=== PATIENT | male | born 1985 | race Caucasian/White ===

== ENCOUNTER 2023-02-21 16:27 | Inpatient (IN) ==
[2023-02-21] MEDS ORDERED: SODIUM CHLORIDE 0.9% 1000ML 1,000 ML IV STA (16:55)
[2023-02-21] MEDS ORDERED: ALBUT/IPRATROP 3MG/0.5MG NEB 3 ML VIAL NEB STA (16:55)
[2023-02-21] MEDS ORDERED: KETOROLAC TROMETHAMINE 15 MG/ML VIAL IV ONE (16:55)
--- NOTE | 2023-02-21 16:55 | Emergency Department Note ---
Impression & Plan Pulmonary emboli, Elevated troponin, Abnormal ECG, Dyspnea ED Provider Note NAME: ALFONSO WILLIAMSON AGE: 37 SEX: M : 1985 ARRIVES VIA: Walk-In INFORMANT: Patient, ED PROVIDER(S): Gerald Boateng MD CHIEF COMPLAINT: Difficulty with breathing MEDICAL DECISION MAKING: Patient presents due to concern for difficulty with breathing was seen at [facility]. The patient has also had some sore throat. IV was established blood was obtained along with an EKG troponin chest x-ray and D-dimer. I did review the patient's EKG and a CT angiography was ordered as the patient does have of T waves anteriorly as well as in lead III. I did review the patient's CT angiography which does show bilateral pulmonary emboli. Heparin drip was ordered. The patient's blood work shows a normal white count H&H and platelet count. The patient's kidney function is unremarkable with normal electrolytes. Slight elevation troponin at 32. The patient's bilirubin 1.5. I did convey the findings to the patient and the family bedside. One of the family members was concerned that this may be related to the COVID-19 vaccine. The patient was vaccinated 2 years ago. I stated that this was exceptionally unlikely and the likely cause was related to the patient's recent prolonged air travel as well as car travel as the patient developed symptoms around the same time that he traveled to [facility] via plane. The patient also did recently travel via car from [place] to [place] which was around 5 hours. D-dimer is greater than 15,000. I did speak with the on-call hospital service Dr. Glass and Franco Hines PA-C, and the patient was admitted by Dr. Glass. Critical Care: I have personally spent 42 minutes of critical care time in direct management of this patient. This includes bedside care, interpretation of diagnostic studies, and testing, discussion with consultants, patient, and family members, and other require inpatient management activities. This 42 minutes is in excess of all separately billable procedures. Prior /Outside records reviewed: None Differential diagnosis: Cardiac ischemia, aortic dissection, pulmonary embolism, pneumothorax, pneumonia, pericarditis, myocarditis, esophageal rupture, GERD, cholecystitis, pancreatitis, musculoskeletal, as well as other pathologies. Diagnostics, as interpreted by me: ECG: Normal sinus rhythm, rate of 83, normal [place] and QRS, normal axis, T wave versions anteriorly laterally and in lead III. No priors for comparison Cardiac monitoring: An order was placed for continuous cardiac monitoring. The monitor shows a rate of 78 with sinus rhythm. Patient was placed on pulse oximetry Medical decision rules: PERC rule Imaging studies: See below I informally reviewed the patient's CT angiography of the chest which shows bilateral PEs. HPI: Patient presents due to concern for increasing difficulty with breathing. The patient states that it was intermittent over the last 2 weeks but seems to be more persistent. The patient did recent return from [place] and does live in [place] and was recently down here to participate in [employer] but did not do so today given his symptoms. The patient feels as though he is "breathing through a straw." No reported history of reactive airway disease or asthma. The patient is a non-smoker. 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 Patient [place] any leg swelling or calf pain. No history of DVT or PE. Patient denies any nausea vomiting or diarrhea. Patient states that he had a negative strep test completed prior to arrival. Patient also did have an EKG and a chest x-ray. He reports that they describe the chest x-ray with some haziness at the bottom and was unsure as to whether or not they could interpret the EKG. PAST MEDICAL HISTORY: See Below PAST SURGICAL HISTORY: See Below SOCIAL HISTORY: See Below HOME MEDICATIONS: See Below ALLERGIES: See Below VITALS: See Below PHYSICAL EXAMINATION: GENERAL: NAD, wearing a mask, non-toxic. EYE EXAM: Normal conjunctiva. PERRL, no anisocoria and EOM's grossly intact w/o pain. Oropharynx: Posterior pharynx is clear with no tonsillar or uvular deviation or swelling NECK: Supple, no nuchal rigidity, no adenopathy, non-tender. No signs of meningismus. FROM of the neck with good chin to chest and neck extension. No stridor. LUNGS: Clear to auscultation. Normal chest wall mechanics. HEART: NSR, no MRG. ABDOMEN: Abdomen soft, non-tender, no masses, no rebound or guarding. BACK: No CVA TTP. SKIN: No rashes and no bruising. UPPER EXTREMITIES: Upper extremities are grossly normal. LOWER EXTREMITIES: Grossly normal, no edema. Negative Homans' sign bilaterally. NEURO EXAM: A&O x3, cranial nerves II-XII grossly intact, normal speech, moves all 4 extremities. Past Med/Surg History Medical History No pertinent past medical history Surgical History No pertinent past surgical history Social History Smoking Status: Never smoker Second Hand Exposure: No; Do You Dip or Chew Tobacco: No; Tobacco Cessation Education Requested by Patient: No Hx Alcohol Use: No Hx Substance Use: No Preferred Language: Central African Communication Ability: Effective Generation Mechanic Helper Required: No Beliefs That Will Affect Care: None Current Living Situation: Spouse Other Information That Helps Us Care for You: No Feels Safe at Home: Yes Safety Concerns: Feels Safe At This Time Assistive Devices: None Allergies Allergies Allergy/AdvReac Type Severity Reaction Status Date / Time No Known Allergies Allergy Unverified 02/21/23 16:43 Home Meds Home Medications Medication Instructions Recorded Confirmed No Known Home Medications 02/21/23 02/21/23 Results & Data (ED) Vital Signs Vital Signs - 24 hr 02/21/23 16:31 02/21/23 16:44 02/21/23 16:40 Temperature 36.6 C Temperature Source Temporal Artery Scan Pulse Rate 89 82 82 Pulse Rate [Left Finger] Pulse Rhythm Regular Regular Pulse Strength Normal Respiratory Rate 20 18 Respiratory Effort / Characteristics Non-Labored Spontaneous Respiratory Depth Normal Respiratory Pattern Regular Blood Pressure 130/90 Blood Pressure [Left Arm] Blood Pressure Mean 103 Blood Pressure Mean [Left Arm] Blood Pressure Position Sitting Pulse Oximetry 96 95 Oxygen Delivery Method Room Air Room Air Sepsis Recent Fever Within 48 Hours No Sepsis New/Unexplained Change in Mental Status No Sepsis Action Taken by Nursing No Action Required 02/21/23 16:40 02/21/23 17:22 Temperature Temperature Source Pulse Rate Pulse Rate [Left Finger] 80 Pulse Rhythm Pulse Strength Respiratory Rate 24 Respiratory Effort / Characteristics Respiratory Depth Respiratory Pattern Blood Pressure Blood Pressure [Left Arm] 118/85 Blood Pressure Mean Blood Pressure Mean [Left Arm] 96 Blood Pressure Position Pulse Oximetry 94 100 Oxygen Delivery Method Room Air Sepsis Recent Fever Within 48 Hours Sepsis New/Unexplained Change in Mental Status Sepsis Action Taken by Assisted Medications Current Medication List: was personally reviewed by me Laboratory Data Attestation: I reviewed the patient's lab results. 02/21/23 16:46 02/21/23 16:46 Lab Results 02/21/23 02/21/23 02/21/23 Range/Units 16:46 16:46 16:46 WBC 7.05 (4.8-10.8) K/ul RBC 5.06 (4.70-6.10) M/uL Hgb 15.3 (14.0-18.0) g/dl Hct 43.9 (42.0-52.0) % MCV 86.8 (80.0-100.0) fL MCH 30.2 (25.0-34.0) pg MCHC 34.9 (32.0-36.0) g/dL RDW Std Deviation 38.7 (36.4-46.3) fL RDW Coeff of Malorie 12.2 (11.5-14.5) % Plt Count 219 (130-400) K/uL MPV 10.6 (9.4-12.4) fL Immature Gran % (Auto) 0.3 % Neut % (Auto) 60.4 % Lymph % (Auto) 30.6 % Maury % (Auto) 8.1 % Eos % (Auto) 0.0 % Baso % (Auto) 0.6 % Neut # (Auto) 4.26 (1.40-6.50) K/uL Lymph # (Auto) 2.16 (1.2-3.4) K/uL Maury # (Auto) 0.57 (0.11-0.59) K/uL Eos # (Auto) 0.00 (0-0.50) K/uL Baso # (Auto) 0.04 (0-0.2) K/uL Immature Gran # (Auto) 0.02 (0.01-0.20) K/uL PT (9.0-12.0) Seconds INR (0.9-1.1) APTT (21.0-31.0) Seconds PTT Ratio D-Dimer 47733 H* (0-500) ug/L FEU Sodium 139 (136-145) mmol/L Potassium 3.9 (3.5-5.1) mmol/L Chloride 105 (98-107) mmol/L Carbon Dioxide 27 (21-32) mmol/L Anion Gap 7 (3-11) BUN 10 (6-23) mg/dl Creatinine 1.03 (0.6-1.4) mg/dl Est Cr Clr Drug Dosing 129.1 ml/min Est GFR ( Amer) 105.6 ml/min Est GFR (Non-Af Amer) 91.1 ml/min BUN/Creatinine Ratio 9.7 L (10-20) Glucose 95 (70-99(Fasting)) mg/dl Calcium 9.3 (8.6-10.3) mg/dl Total Bilirubin 1.5 H (0.2-1.0) mg/dl AST 39 (13-39) U/L ALT 22 (7-52) U/L Alkaline Phosphatase 94 (34-104) U/L Troponin I High Sens 32.0 H (0-20) pg/ml Total Protein 8.2 (6.0-8.3) gm/dl Albumin 4.5 (3.4-5.0) gm/dl Globulin 3.7 (2.5-4.0) gm/dl Albumin/Globulin Ratio 1.2 (0.9-2) Lipase 42 (11-82) U/L SARS-CoV-2 (PCR) (Negative) Influenza Type A (PCR) (Neg) Influenza Type B (PCR) (Neg) RSV (RT-PCR) (Neg) 02/21/23 02/21/23 Range/Units 16:46 17:08 WBC (4.8-10.8) K/ul RBC (4.70-6.10) M/uL Hgb (14.0-18.0) g/dl Hct (42.0-52.0) % MCV (80.0-100.0) fL MCH (25.0-34.0) pg MCHC (32.0-36.0) g/dL RDW Std Deviation (36.4-46.3) fL RDW Coeff of Malorie (11.5-14.5) % Plt Count (130-400) K/uL MPV (9.4-12.4) fL Immature Gran % (Auto) % Neut % (Auto) % Lymph % (Auto) % Maury % (Auto) % Eos % (Auto) % Baso % (Auto) % Neut # (Auto) (1.40-6.50) K/uL Lymph # (Auto) (1.2-3.4) K/uL Maury # (Auto) (0.11-0.59) K/uL Eos # (Auto) (0-0.50) K/uL Baso # (Auto) (0-0.2) K/uL Immature Gran # (Auto) (0.01-0.20) K/uL PT 10.8 (9.0-12.0) Seconds INR 1.0 (0.9-1.1) APTT 28.3 (21.0-31.0) Seconds PTT Ratio 1.0 D-Dimer (0-500) ug/L FEU Sodium (136-145) mmol/L Potassium (3.5-5.1) mmol/L Chloride (98-107) mmol/L Carbon Dioxide (21-32) mmol/L Anion Gap (3-11) BUN (6-23) mg/dl Creatinine (0.6-1.4) mg/dl Est Cr Clr Drug Dosing ml/min Est GFR ( Amer) ml/min Est GFR (Non-Af Amer) ml/min BUN/Creatinine Ratio (10-20) Glucose (70-99(Fasting)) mg/dl Calcium (8.6-10.3) mg/dl Total Bilirubin (0.2-1.0) mg/dl AST (13-39) U/L ALT (7-52) U/L Alkaline Phosphatase (34-104) U/L Troponin I High Sens (0-20) pg/ml Total Protein (6.0-8.3) gm/dl Albumin (3.4-5.0) gm/dl Globulin (2.5-4.0) gm/dl Albumin/Globulin Ratio (0.9-2) Lipase (11-82) U/L SARS-CoV-2 (PCR) NEGATIVE (Negative) Influenza Type A (PCR) Negative (Neg) Influenza Type B (PCR) Negative (Neg) RSV (RT-PCR) Negative (Neg) Administered Medications Heparin Sodium/Dextrose (Heparin Sodium/Dextrose) 25,000 units in 500 mls @ 34 mls/hr IV .[id number] [facility]; Protocol Stop: 03/23/23 18:29 Last Admin: 02/21/23 18:44 Dose: 1,700 units/hr, 34 mls/hr Documented By: SUZI Co-signed By: LISSETTE Discontinued Medications Albuterol (Albut/Ipratrop 3mg/0.5mg Neb 3 Ml Vial) 3 ml NEB NOW STA; Protocol Stop: 02/21/23 16:56 Last Admin: 02/21/23 17:14 Dose: 3 ml Documented By: SUZI Heparin Sodium (Porcine) (Heparin Sod (Porcine) 1000 Unit/Ml) 8,000 units IV NOW ONE Stop: 02/21/23 18:19 Last Admin: 02/21/23 18:47 Dose: 8,000 units Documented By: SUZI Co-signed By: LISSETTE Sodium Chloride (Nss 1000ml) 1,000 mls @ 999 mls/hr IV .Q1H1M STA Stop: 02/21/23 17:55 Last Admin: 02/21/23 17:04 Dose: 999 mls/hr Documented By: SUZI Ioversol (Optiray 320 125ml) 119 ml IV ONCE ONE Stop: 02/21/23 17:46 Last Admin: 02/21/23 17:45 Dose: 119 ml Documented By: MICHEL Ketorolac Tromethamine (Ketorolac Tromethamine 15 Mg/Ml Vial) 10 mg IV NOW ONE Stop: 02/21/23 16:56 Last Admin: 02/21/23 17:05 Dose: 10 mg Documented By: SUZI Methylprednisolone (Methylprednisolone 40 Mg/Ml Vial) 40 mg IV NOW STA Stop: 02/21/23 16:56 Last Admin: 02/21/23 17:05 Dose: 40 mg Documented By: SUZI Imaging Data Radiologist's Impression: Chest X-Ray 02/21/23 16:55 SINGLE VIEW CHEST CLINICAL HISTORY: Atypical chest pain. FINDINGS: An AP, portable, upright chest radiograph is obtained. No prior studies are available for comparison at the time of dictation. The cardiomediastinal silhouette is unremarkable. There is mild elevation of right hemidiaphragm with dependent atelectasis. The lungs and pleural spaces are otherwise clear. No pneumothorax is seen. The bony thorax is grossly intact. IMPRESSION: No acute cardiopulmonary abnormality. ACT 112: Negative or not required by law. Electronically signed by: Boogie Castanon M.D. 02/21/2023 5:18 PM Chest CTA 02/21/23 17:26 CT ANGIOGRAM OF THE CHEST CLINICAL HISTORY: Cough and dyspnea. COMPARISON STUDY: Chest x-ray dated 02/21/2023. TECHNIQUE: Following the IV administration of 119 cc of Optiray 320, CT a ngiogram of the chest was performed from the upper abdomen to the thoracic inlet utilizing the pulmonary embolus protocol. Images are reviewed in the axial, sagittal, and coronal planes. 3-D MIPS images are created and assessed. IV contrast was administered without complication. A dose lowering technique was utilized adhering to the principles of ALARA. CT DOSE: 900.90 mGy.cm FINDINGS: Thyroid: Imaged portions of the thyroid gland are normal in size and attenuation. Thoracic aorta: The thoracic aorta is normal in caliber and demonstrates standard 3-vessel arch anatomy. No dissection is seen. Pulmonary vasculature: The pulmonary trunk is dilated measuring 3.4 cm in diameter. There is extensive bilateral pulmonary embolus. There is thrombus within the distal right main pulmonary artery. This extends into the right upper, middle, and lower lobe pulmonary arteries into segmental and subsegmental branches. There is thrombus within the left upper and left lower lobe pulmonary arteries extending into segmental and subsegmental branches. There is segmental and subsegmental pulmonary embolus within the lingula. Heart: The heart is normal in size and without pericardial effusion. There is flattening of the interventricular septum. Lungs and pleural spaces: Evaluation of the lung parenchyma is modestly degraded by motion artifact. There are minimal patchy opacities in the paramediastinal left upper lobe seen on image #154. Minimal subpleural opacities at the right apex are seen on image #185. No pleural effusion is seen. Dependent atelectasis is seen at the lung bases. Mediastinum: There is no mediastinal lymphadenopathy. Dinorah: Clear. Axillae: There is no axillary lymphadenopathy. Upper abdomen: Partially visualized upper abdominal viscera is within normal limits. Skeletal structures: No lytic or blastic bony lesions are seen. IMPRESSION: 1. Extensive bilateral pulmonary embolus as above. 2. Findings suggest right heart strain. 3. Subpleural opacities in the upper lobes likely represents tiny pulmonary infarcts. 4. No pleural effusion is seen. 5. Additional findings as above. ACT 112: Negative or not required by law. Electronically signed by: Boogie Castanon M.D. 02/21/2023 5:59 PM Discharge Plan Visit Data Chief Complaint: Shortness of Breath/Dyspnea Stated Complaint: DIFF BREATHING, SORE THROAT - REF BY [employer] ED Provider: Gerald Boateng Discharge Problem: Pulmonary emboli, Elevated troponin, Abnormal ECG, Dyspnea Patient Disposition: Admitted As Inpatient Discharge Instructions Interventions: ED Discharge Assessment Last Done: 02/21/23 19:11
[2023-02-21 17:12] LABS: Basophils # (auto) 0.04 K/uL (0-0.2); Basophils % (auto) 0.6 %; Hematocrit (blood only) 43.9 % (42.0-52.0); Hemoglobin 15.3 g/dl (14.0-18.0); Immature Granulocytes # (auto) 0.02 K/uL (0.01-0.20); Immature Granulocytes % (auto) 0.3 %; Lymphocytes # (auto) 2.16 K/uL (1.2-3.4); Lymphocytes % (auto) 30.6 %; Mean Corpuscular Hemoglobin 30.2 pg (25.0-34.0); Mean Corpuscular Hgb Conc 34.9 g/dL (32.0-36.0); Mean Corpuscular Volume 86.8 fL (80.0-100.0); Mean Platelet Volume 10.6 fL (9.4-12.4); Monocytes # (auto) 0.57 K/uL (0.11-0.59); Monocytes % (auto) 8.1 %; Neutrophils # (auto) 4.26 K/uL (1.40-6.50); Neutrophils % (auto) 60.4 %; Platelet Count 219 K/uL (130-400); RDW Coefficient of Variation 12.2 % (11.5-14.5); RDW Standard Deviation 38.7 fL (36.4-46.3); Red Blood Count 5.06 M/uL (4.70-6.10); White Blood Count 7.05 K/ul (4.8-10.8)
[2023-02-21 17:19] LABS: Albumin Globulin Ratio 1.2 (0.9-2); Albumin Level 4.5 gm/dl (3.4-5.0); BUN Creatinine Ratio 9.7 (10-20); Bilirubin,Total 1.5 mg/dl (0.2-1.0); Calcium 9.3 mg/dl (8.6-10.3); Creatinine Clr Calc Pharmacy 129.1 ml/min; Est GFR (African American) 105.6 ml/min; Est GFR (Non-African American) 91.1 ml/min; Globulin 3.7 gm/dl (2.5-4.0); Potassium 3.9 mmol/L (3.5-5.1); Total Protein 8.2 gm/dl (6.0-8.3)
--- NOTE | 2023-02-21 17:20 | XRay Report ---
SINGLE VIEW CHEST CLINICAL HISTORY: Atypical chest pain. FINDINGS: An AP, portable, upright chest radiograph is obtained. No prior studies are available for c omparison at the time of dictation. The cardiomediastinal silhouette is unremarkable. There is mild e levation of right hemidiaphragm with dependent atelectasis. The lungs and pleural spaces are otherwis e clear. No pneumothorax is seen. The bony thorax is grossly intact. IMPRESSION: No acute cardiopulmonary abnormality. ACT 112: Negative or not required by law. Electronically signed by: Boogie Castanon M.D. 02/21/2023 5:18 PM
[2023-02-21] MEDS ORDERED: OPTIRAY 320 125ml IV ONE (17:45)
[2023-02-21 17:54] LABS: Influenza A virus by PCR Negative (Neg); Influenza B virus by PCR Negative (Neg); RSV by PCR Negative (Neg); SARS CoV2 RNA(COVID-19) Ceph NEGATIVE (Negative)
--- NOTE | 2023-02-21 18:01 | CT Scan Report ---
CT ANGIOGRAM OF THE CHEST CLINICAL HISTORY: Cough and dyspnea. COMPARISON STUDY: Chest x-ray dated 02/21/2023. TECHNIQUE: Following the IV administration of 119 cc of Optiray 320, CT angiogram of the chest was pe rformed from the upper abdomen to the thoracic inlet utilizing the pulmonary embolus protocol. Images are reviewed in the axial, sagittal, and coronal planes. 3-D MIPS images are created and assessed. I V contrast was administered without complication. A dose lowering technique was utilized adhering to the principles of ALARA. CT DOSE: 900.90 mGy.cm FINDINGS: Thyroid: Imaged portions of the thyroid gland are normal in size and attenuation. Thoracic aorta: The thoracic aorta is normal in caliber and demonstrates standard 3-vessel arch anato my. No dissection is seen. Pulmonary vasculature: The pulmonary trunk is dilated measuring 3.4 cm in diameter. There is extensiv e bilateral pulmonary embolus. There is thrombus within the distal right main pulmonary artery. This extends into the right upper, middle, and lower lobe pulmonary arteries into segmental and subsegment al branches. There is thrombus within the left upper and left lower lobe pulmonary arteries extending into segmental and subsegmental branches. There is segmental and subsegmental pulmonary embolus with in the lingula. Heart: The heart is normal in size and without pericardial effusion. There is flattening of the inter ventricular septum. Lungs and pleural spaces: Evaluation of the lung parenchyma is modestly degraded by motion artifact. There are minimal patchy opacities in the paramediastinal left upper lobe seen on image #154. Minimal subpleural opacities at the right apex are seen on image #185. No pleural effusion is seen. Dependen t atelectasis is seen at the lung bases. Mediastinum: There is no mediastinal lymphadenopathy. Dinorah: Clear. Axillae: There is no axillary lymphadenopathy. Upper abdomen: Partially visualized upper abdominal viscera is within normal limits. Skeletal structures: No lytic or blastic bony lesions are seen. IMPRESSION: 1. Extensive bilateral pulmonary embolus as above. 2. Findings suggest right heart strain. 3. Subpleural opacities in the upper lobes likely represents tiny pulmonary infarcts. 4. No pleural effusion is seen. 5. Additional findings as above. ACT 112: Negative or not required by law. Electronically signed by: Boogie Castanon M.D. 02/21/2023 5:59 PM
[2023-02-21] MEDS ORDERED: Heparin IV Adult Wt-Based Standard WITH Bolus Protocol IV STA (18:02)
[2023-02-21 18:17] LABS: D Dimer 15680 ug/L FEU (0-500)
[2023-02-21] MEDS ORDERED: HEPARIN SOD (PORCINE) 1000 UNIT/ML IV ONE ×2 (18:18)
--- NOTE | 2023-02-21 18:19 | History & Physical Report ---
Date of Service February 21, 2023 Assessment & Plan (1) Pulmonary emboli: Plan: -Admit to the PCU on tele -Currently hemodynamically stable and stable on RA -Patient had been experiencing two weeks of sore throat, headache, and increased SOB with exertion -Found to have extensive BL PE's BL, report mentions signs of right heart strain but he has been hemodynamically stable and stable on RA since arrival -At this time, it appears that these PE's are provoked as he has had multiple long trips recently -Continue heparin drip overnight, can convert to PO anticoagulant prior to discharge -Will obtain BL venous dopplers of the LE's and TTE for further evaluation -Would continue to stress the importance of avoid intense activity/working out on discharge until he follows up with his home PCP as the patient and his father were very interested when he could continue working out -Heparin drip for DVT PPX -Regular diet -AM CBC, CMP, APTT/PT INR (2) Elevated troponin: Plan: -Initial high sen trop elevated at 32 -Patient is asymptomatic at rest -Noted to have t-wave inversions in the anterior leads on ECG -Likely due to his acute, extensive, BL PE's -Will repeat another high sen trop STAT -Continue to monitor on tele -Follow TTE when completed tomorrow Plan The patient was discussed with Dr. Glass at the time of the admission History of Present Illness Chief Complaint: SOB Primary Care Provider: NO PCP Diego is a 37 year old male with no significant PMH who presents to the [facility] ED on 02/21 from Urgent Care due to complaints of SOB with new T-wave inversions noted on ECG. In the ED he was found to be stable. Labs were significant for a total bili of 1.5 and initial high sen trop of 32. Chest xray was negative for acute findings. CTA of the chest was read as "1. Extensive bilateral pulmonary embolus as above. 2. Findings suggest right heart strain. 3. Subpleural opacities in the upper lobes likely represents tiny pulmonary infarcts.". Prior to admission the patient was given 40 mg IV methylprednisolone, 10 mg IV toradol, 1L NSS, a DuoNeb treatment, and started on a heparin drip. At the time of the exam the patient was sitting in bed in no acute distress with his and father sitting bedside. The patient states that he has been experiencing sore throat and increased SOB with exercise. He explains that he and his family came into town for the [employer] competition and drive in from [place]. While warming up today he states that he did not feel "right" and decided to not participate in the competition and go to an urgent care instead. He tested negative for covid and strep but had t-wave inversions in the anterior leads, so they recommend ED evaluation. He denies a previous hx of blood clots, he does not use alcohol or tobacco products. he denies recent injury to his LE's. Of note, he did fly to and from [place] approximately 2 weeks ago, when his symptoms started. he currently denies fever, chills, chest pain, cough, hemoptysis, SOB at rest, abd pain, nausea, vomiting, diarrhea, dysuria, hematuria, melena, LE swelling, and recent trauma. Please refer to Dr. Glass's attestation for any changes to the treatment plan Allergies Allergy/AdvReac Type Severity Reaction Status Date / Time No Known Allergies Allergy Unverified 02/21/23 16:43 Home Medications Medication Instructions Recorded Confirmed Type No Known Home Medications 02/21/23 02/21/23 History Past Med/Surg History Medical History No pertinent past medical history Surgical History No pertinent past surgical history Social History Smoking Status: Never smoker Second Hand Exposure: No; Do You Dip or Chew Tobacco: No; Tobacco Cessation Education Requested by Patient: No Hx Alcohol Use: No Hx Substance Use: No Preferred Language: Uzbek Communication Ability: Effective Caustic Mixer Required: No Beliefs That Will Affect Care: None Current Living Situation: Spouse Other Information That Helps Us Care for You: No Feels Safe at Home: Yes Safety Concerns: Feels Safe At This Time Assistive Devices: None Physical Exam Physical Exam: Physical Exam: General: In no acute distress, stated age, well-nourished, good hygiene HEENT: Normocephalic, atraumatic, no scleral icterus, pupils around round, symmetrical, and reactive to light, moist mucus membranes, trachea midline, no thyromegaly Chest/Pulm: No respiratory distress, symmetrical chest expansion, clear breath sounds throughout Cardiac: RRR, no murmurs noted Abdomen: Negative for ascites and bruising, normoactive bowel sounds, soft, non-tender to palpation throughout Musculoskeletal: Symmetrical and without signs of acute trauma, upper and lower extremities with full ROM, no atrophy, spasticity, or flaccidity Extremities: Radial, dorsalis pedis, and posterior tibial pulses are intact and symmetrical, no edema noted in the BL LE's Skin: Warm, dry, no rashes , lesions, or scars noted Neuro: Alert and oriented to person, place, month, year, and president, no tremors noted Psych: No acute distress, calm and cooperative during the exam Results & Data Results & Data Vital Signs (Past 12 Hours) Vital Signs Temp Pulse Pulse Resp BP BP Pulse Ox 02/21/23 17:22 80 24 118/85 100 02/21/23 16:40 94 02/21/23 16:40 82 18 95 02/21/23 16:44 82 02/21/23 16:31 36.6 C 89 20 130/90 96 O2 Del Method 02/21/23 17:22 02/21/23 16:40 Room Air 02/21/23 16:40 Room Air 02/21/23 16:44 02/21/23 16:31 Room Air Laboratory Results Abnormal lab results 02/21/23 02/21/23 Range/Units 16:46 16:46 D-Dimer 30700 H* (0-500) ug/L FEU BUN/Creatinine Ratio 9.7 L (10-20) Total Bilirubin 1.5 H (0.2-1.0) mg/dl Troponin I High Sens 32.0 H (0-20) pg/ml Diagnostic Findings Chest X-Ray 02/21/23 16:55 SINGLE VIEW CHEST CLINICAL HISTORY: Atypical chest pain. FINDINGS: An AP, portable, upright chest radiograph is obtained. No prior studies are available for comparison at the time of dictation. The cardiomediastinal silhouette is unremarkable. There is mild elevation of right hemidiaphragm with dependent atelectasis. The lungs and pleural spaces are otherwise clear. No pneumothorax is seen. The bony thorax is grossly intact. IMPRESSION: No acute cardiopulmonary abnormality. ACT 112: Negative or not required by law. Electronically signed by: Boogie Castanon M.D. 02/21/2023 5:18 PM Chest CTA 02/21/23 17:26 CT ANGIOGRAM OF THE CHEST CLINICAL HISTORY: Cough and dyspnea. COMPARISON STUDY: Chest x-ray dated 02/21/2023. TECHNIQUE: Following the IV administration of 119 cc of Optiray 320, CT angiogram of the chest was performed from the upper abdomen to the thoracic inlet utilizing the pulmonary embolus protocol. Images are reviewed in the axial, sagittal, and coronal planes. 3-D MIPS images are created and assessed. IV contrast was administered without complication. A dose lowering technique was utilized adhering to the principles of ALARA. CT DOSE: 900.90 mGy.cm FINDINGS: Thyroid: Imaged portions of the thyroid gland are normal in size and attenuation. Thoracic aorta: The thoracic aorta is normal in caliber and demonstrates standard 3-vessel arch anatomy. No dissection is seen. Pulmonary vasculature: The pulmonary trunk is dilated measuring 3.4 cm in diameter. There is extensive bilateral pulmonary embolus. There is thrombus within the distal right main pulmonary artery. This extends into the right upper, middle, and lower lobe pulmonary arteries into segmental and subsegmental branches. There is thrombus within the left upper and left lower lobe pulmonary arteries extending into segmental and subsegmental branches. There is segmental and subsegmental pulmonary embolus within the lingula. Heart: The heart is normal in size and without pericardial effusion. There is flattening of the interventricular septum. Lungs and pleural spaces: Evaluation of the lung parenchyma is modestly degraded by motion artifact. There are minimal patchy opacities in the paramediastinal left upper lobe seen on image #154. Minimal subpleural opacities at the right apex are seen on image #185. No pleural effusion is seen. Dependent atelectasis is seen at the lung bases. Mediastinum: There is no mediastinal lymphadenopathy. Dinorah: Clear. Axillae: There is no axillary lymphadenopathy. Upper abdomen: Partially visualized upper abdominal viscera is within normal limits. Skeletal structures: No lytic or blastic bony lesions are seen. IMPRESSION: 1. Extensive bilateral pulmonary embolus as above. 2. Findings suggest right heart strain. 3. Subpleural opacities in the upper lobes likely represents tiny pulmonary infarcts. 4. No pleural effusion is seen. 5. Additional findings as above. ACT 112: Negative or not required by law. Electronically signed by: Boogie Castanon M.D. 02/21/2023 5:59 PM ECG Additional Comments: Normal sinus rhythm T wave abnormality, consider anterior ischemia Prolonged QT Abnormal ECG No previous ECGs available Code Status & VTE Plan Code Status Full code Supervising Physician Co-Signing Physician Notes I personally saw and examined the patient. I verified all jarrell points and agree with Franco Hines PA-C with the following exceptions and/or additions: 37 year old male presents to the ER with shortness of breath. Recent flights and long drive from [place]. No family or personal history of chronic autoimmune conditions or DVT/PE. O/E HS RRR, no murmurs, Chest CTAB, Abdo SNT, no calf tenderness or swelling A/P Acute pulmonary embolism - would label as provoked due to recent flights and long car journey. US venous doppler ordered as DVT in legs would support this diagnosis. Without this I think a hypercoagulable workup would be much more warranted. Given size of PE and young age of patient recommend 6 months of treatment. PG Care Time/CCT Total # of Minutes Spent Total Time Spent with Patient: Total time spent is greater than 50% in coordination of care (as documented) at patient's floor/unit and/or counseling patient: [place] [address] INT INP/OBS CARE 3/75MIN Patient Type New Medical Decision Making High Complexity Diagnoses Pulmonary emboli I26.99 Elevated troponin R77.8
[2023-02-21 18:29] LABS: Partial Thromboplastin Time 28.3 Seconds (21.0-31.0); Prothrombin Time 10.8 Seconds (9.0-12.0)
[2023-02-21] MEDS: HEPARIN SODIUM/DEXTROSE 25,000 UNITS/500 ML BAG IV SCH (18:44)
[2023-02-21] MEDS ORDERED: ACETAMINOPHEN 325 MG TAB PO PRN (19:50)
[2023-02-21 20:03] LABS: Partial Thromboplastin Ratio 4.2
[2023-02-21 20:39] LABS: Partial Thromboplastin Time 118.2 Seconds (21.0-31.0)
--- NOTE | 2023-02-22 00:02 | Ultrasound Report ---
ULTRASOUND BILATERAL LOWER EXTREMITY VENOUS CLINICAL HISTORY: Pulmonary embolus COMPARISON STUDY: No priors. TECHNIQUE: Real-time, grayscale, and color Doppler sonography of the deep veins of the right and left lower extremity was performed from the inguinal crease to the calf. Compression and augmentation wer e utilized. FINDINGS: Right lower extremity: There is no sonographic evidence of deep venous thrombosis in the right lower extremity. The common femoral, superficial femoral, and popliteal veins are patent and normally compr essible. The greater saphenous vein and the profunda femoris vein at the junction with the common fem oral vein are clear. The visualized calf veins are patent. Left lower extremity: There is nearly occlusive deep venous thrombosis identified in the left poplite al vein and in the calf within the gastrocnemius vein. Occlusive deep venous thrombosis is seen withi n the left peroneal vein. The common femoral, superficial femoral, and popliteal veins are patent and normally compressible. The greater saphenous vein and the profunda femoris vein at the junction with the common femoral vein are clear. IMPRESSION: 1. There is deep venous thrombosis in the left popliteal vein and within the left calf veins as above . 2. There is no sonographic evidence of the venous thrombosis in the right lower extremity. ACT 112: Negative or not required by law. Electronically signed by: Boogie Castanon M.D. 02/21/2023 11:59 PM
[2023-02-22 04:34] LABS: Basophils # (auto) 0.01 K/uL (0-0.2); Basophils % (auto) 0.2 %; Hematocrit (blood only) 41.9 % (42.0-52.0); Hemoglobin 14.6 g/dl (14.0-18.0); Immature Granulocytes # (auto) 0.01 K/uL (0.01-0.20); Immature Granulocytes % (auto) 0.2 %; Lymphocytes # (auto) 0.96 K/uL (1.2-3.4); Lymphocytes % (auto) 16.5 %; Mean Corpuscular Hemoglobin 30.1 pg (25.0-34.0); Mean Corpuscular Hgb Conc 34.8 g/dL (32.0-36.0); Mean Corpuscular Volume 86.4 fL (80.0-100.0); Mean Platelet Volume 10.8 fL (9.4-12.4); Monocytes # (auto) 0.35 K/uL (0.11-0.59); Neutrophils # (auto) 4.48 K/uL (1.40-6.50); Neutrophils % (auto) 77.1 %; Platelet Count 216 K/uL (130-400); RDW Coefficient of Variation 12.1 % (11.5-14.5); RDW Standard Deviation 38.6 fL (36.4-46.3); Red Blood Count 4.85 M/uL (4.70-6.10); White Blood Count 5.81 K/ul (4.8-10.8)
[2023-02-22 04:45] LABS: Albumin Globulin Ratio 1.3 (0.9-2); BUN Creatinine Ratio 18.1 (10-20); Bilirubin,Total 1.4 mg/dl (0.2-1.0); Calcium 9.3 mg/dl (8.6-10.3); Creatinine Clr Calc Pharmacy 129.5 ml/min; Est GFR (African American) 117.9 ml/min; Est GFR (Non-African American) 101.7 ml/min; Globulin 3.2 gm/dl (2.5-4.0); Potassium 4.1 mmol/L (3.5-5.1); Total Protein 7.2 gm/dl (6.0-8.3)
[2023-02-22 05:01] LABS: Partial Thromboplastin Ratio 1.2; Partial Thromboplastin Time 34.4 Seconds (21.0-31.0); Prothrombin Time 10.7 Seconds (9.0-12.0)
[2023-02-22] MEDS ORDERED: HEPARIN SOD (PORCINE) 1000 UNIT/ML IV ONE (05:10)
[2023-02-22 12:41] LABS: Partial Thromboplastin Ratio 1.5
[2023-02-22] MEDS: APIXABAN 5 MG TABLET PO SCH ×2 (12:57→20:30)
[2023-02-22] MEDS: HEPARIN SODIUM/DEXTROSE 25,000 UNITS/500 ML BAG IV SCH (13:02)
--- NOTE | 2023-02-22 13:19 | Hospitalist Progress Note ---
Date of Service February 22, 2023 Assessment & Plan (1) Pulmonary emboli: Plan: Acute bilateral PE'sdue toacute left peroneal and popliteal vein DVT's -Currently hemodynamically stable and stable on RA -Patient had been experiencing two weeks of sore throat, headache, and increased SOB with exertion -Found to have extensive BL PE's BL, report mentions signs of right heart strain but he has been hemodynamically stable and stable on RA since arrival -Duplex showed popliteal vein dvt -Initially thought to be provoked, however patient admits to calf pains in the past and also calf pain before his long travel -Will obtain hypercoagulation work up -Transition from heparin to PO Eliquis -Hopefully d/c tomorrow (2) Elevated troponin: Plan: -Initial high sen trop elevated at 32 , likley demand ischemia from PE -Patient is asymptomatic at rest -Noted to have t-wave inversions in the anterior leads on ECG -Likely due to his acute, extensive, BL PE's -Will repeat another high sen trop STAT -Continue to monitor on tele -No wall motion abnormality on ECHO Plan hopefully d/c home tomorrow Admission and Anticipated Discharge Date Admission Date: February 21, 2023 Subjective patient seen and examined, no new complaints, denies chest pain or SOB Review of Systems Review of Systems: All systems reviewed are negative, apart from the ones contained in the history. Physical Exam Physical Exam: The patient is awake, alert and oriented 3, well developed and well nourished, normocephalic and atraumatic, lying in bed and in no acute distress. HEENT--PERRL, EOMI, mucous membranes and oropharynx mildly dry Neck--supple. No JVD. No bruits. Thyroid normal, trachea midline, no adenopathy. Heart--normal S1 and S2. No murmurs, rubs or gallops. Lungs--clear bilaterally, no respiratory distress, no accessory muscle use. Abdomen--normal bowel sounds and soft. Mild epigastric and left sided abdominal pain Extremities--no cyanosis or clubbing. No edema. Dermatologic--normal skin turgor, normal color, no abnormal lymph nodes, no rash. Neurologic--cranial nerves II through XII grossly intact. Rheumatologic--normal range of motion. Psychiatric--normal affect. Results & Data Results & Data Vital Signs (Past 12 Hours) Vital Signs Temp Pulse Pulse Resp BP Pulse Ox O2 Del Method 02/22/23 12:25 98.1 F 62 18 139/85 95 Room Air 02/22/23 07:41 97.9 F 62 18 124/77 97 Room Air 02/22/23 06:08 58 L 02/22/23 07:21 Room Air 02/22/23 03:51 98.1 F 72 16 121/73 91 Room Air PG Care Time/CCT Total # of Minutes Spent Total Time Spent with Patient: Total time spent is greater than 50% in coordination of care (as documented) at patient's floor/unit and/or counseling patient: Coding Level of Care Code 96919 SUB INP/OBS CARE 2/35MIN Diagnoses Pulmonary emboli I26.99 Acute cor pulmonale presence: unspecified Chronicity: acute Pulmonary embolism type: unspecified Elevated troponin R77.8 Time Spent (min) 35 (1) Pulmonary emboli Acute cor pulmonale presence: unspecified Chronicity: acute Pulmonary e mbolism type: unspecified Qualified Code(s): I26.99 - Other pulmonary embolism without acute cor pulmonale
--- NOTE | 2023-02-22 16:56 | XCELERA ---
[id number]
[2023-02-23 07:22] LABS: Albumin Globulin Ratio 1.2 (0.9-2); Albumin Level 3.8 gm/dl (3.4-5.0); BUN Creatinine Ratio 17.5 (10-20); Bilirubin,Total 1.1 mg/dl (0.2-1.0); Creatinine Clr Calc Pharmacy 138.2 ml/min; Est GFR (African American) 113.5 ml/min; Est GFR (Non-African American) 97.9 ml/min; Globulin 3.3 gm/dl (2.5-4.0); Potassium 4.4 mmol/L (3.5-5.1); Total Protein 7.1 gm/dl (6.0-8.3)
[2023-02-23 07:31] LABS: Basophils # (auto) 0.03 K/uL (0-0.2); Basophils % (auto) 0.6 %; Hematocrit (blood only) 41.2 % (42.0-52.0); Hemoglobin 14.2 g/dl (14.0-18.0); Immature Granulocytes # (auto) 0.02 K/uL (0.01-0.20); Immature Granulocytes % (auto) 0.4 %; Lymphocytes # (auto) 1.65 K/uL (1.2-3.4); Lymphocytes % (auto) 32.9 %; Mean Corpuscular Hemoglobin 30.2 pg (25.0-34.0); Mean Corpuscular Hgb Conc 34.5 g/dL (32.0-36.0); Mean Corpuscular Volume 87.7 fL (80.0-100.0); Mean Platelet Volume 10.9 fL (9.4-12.4); Monocytes # (auto) 0.52 K/uL (0.11-0.59); Monocytes % (auto) 10.4 %; Neutrophils # (auto) 2.79 K/uL (1.40-6.50); Neutrophils % (auto) 55.7 %; Platelet Count 199 K/uL (130-400); RDW Coefficient of Variation 12.2 % (11.5-14.5); RDW Standard Deviation 39.2 fL (36.4-46.3); White Blood Count 5.01 K/ul (4.8-10.8)
[2023-02-23 07:53] LABS: Partial Thromboplastin Time 28.5 Seconds (21.0-31.0); Prothrombin Time 10.7 Seconds (9.0-12.0)
[2023-02-23] MEDS: APIXABAN 5 MG TABLET PO SCH (08:46)
--- NOTE | 2023-02-23 12:05 | Discharge Summary ---
Date of Service February 23, 2023 Admission HPI Per Admitting Provider Diego is a 37 year old male with no significant PMH who presents to the [facility] ED on 02/21 from Urgent Care due to complaints of SOB with new T-wave inversions noted on ECG. In the ED he was found to be stable. Labs were s ignificant for a total bili of 1.5 and initial high sen trop of 32. Chest xray was negative for acute findings. CTA of the chest was read as "1. Extensive bilateral pulmonary embolus as above. 2. Findings suggest right heart strain. 3. Subpleural opacities in the upper lobes likely represents tiny pulmonary infarcts.". Prior to admission the patient was given 40 mg IV methylprednisolone, 10 mg IV toradol, 1L NSS, a DuoNeb treatment, and started on a heparin drip. At the time of the exam the patient was sitting in bed in no acute distress with his and father sitting bedside. The patient states that he has been experiencing sore throat and increased SOB with exercise. He explains that he and his family came into town for the [employer] competition and drive in from [place]. While warming up today he states that he did not feel "right" and decided to not participate in the competition and go to an urgent care instead. He tested negative for covid and strep but had t-wave inversions in the anterior leads, so they recommend ED evaluation. He denies a previous hx of blood clots, he does not use alcohol or tobacco products. he denies recent injury to his LE's. Of note, he did fly to and from [place] approximately 2 weeks ago, when his symptoms started. he currently denies fever, chills, chest pain, cough, hemoptysis, SOB at rest, abd pain, nausea, vomiting, diarrhea, dysuria, hematuria, melena, LE swelling, and recent trauma. Principal Diagnosis acute DVT and PE Discharge Exam The patient is awake, alert and oriented 3, well developed and well nourished, normocephalic and atraumatic, lying in bed and in no acute distress. HEENT--PERRL, EOMI, mucous membranes and oropharynx mildly dry Neck--supple. No JVD. No bruits. Thyroid normal, trachea midline, no adenopathy. Heart--normal S1 and S2. No murmurs, rubs or gallops. Lungs--clear bilaterally, no respiratory distress, no accessory muscle use. Abdomen--normal bowel sounds and soft. Mild epigastric and left sided abdominal pain Extremities--no cyanosis or clubbing. No edema. Dermatologic--normal skin turgor, normal color, no abnormal lymph nodes, no rash. Neurologic--cranial nerves II through XII grossly intact. Rheumatologic--normal range of motion. Psychiatric--normal affect. Discharge Data Allergies Allergy/AdvReac Type Severity Reaction Status Date / Time No Known Allergies Allergy Unverified 02/21/23 16:43 Consultations 02/21/23 18:31 ED Decision to Admit Stat Ordered Studies 02/21/23 17:26 CT angio chest PE protocol Stat 02/21/23 18:36 US venous doppler [facility] Urgent Hospital Course (1) Pulmonary emboli: Acute bilateral PE'sdue toacute left peroneal and popliteal vein DVT's -Currently hemodynamically stable and stable on RA -Patient had been experiencing two weeks of sore throat, headache, and increased SOB with exertion -Found to have extensive BL PE's BL, report mentions signs of right heart strain but he has been hemodynamically stable and stable on RA since arrival -Duplex showed popliteal vein dvt -Initially thought to be provoked, however patient admits to calf pains in the past and also calf pain before his long travel -Will obtain hypercoagulation work up -Continue PO Eliquis for at least 3 months, however will need it indefinitely if hypercoag w/u is positive -d/c home (2) Elevated troponin: -Initial high sen trop elevated at 32 , likley demand ischemia from PE -Patient is asymptomatic at rest -Noted to have t-wave inversions in the anterior leads on ECG -Likely due to his acute, extensive, BL PE's -Will repeat another high sen trop STAT -Continue to monitor on tele -No wall motion abnormality on ECHO Plan d/c home Total Time Total Time Spent Total Time Spent (In Minutes): 35 Discharge Plan Discharge Items Patient Disposition: Home - Self-Care Reason For Visit: SOB, ABNORMAL OUTPATIENT ECG, NEW PE'S Discharge Diagnosis: PE, DVT Activity: Per Instructions section Activity Comment: Please avoid strenous execrcise.Gradually increase as tolerated. Lifting: Gradually increase as tolerated Non-emergency contact: Primary Care Provider Call non-emergency contact if: you have any medication questions Follow-up/Referrals: PCP,NO [Primary Care Provider] - Diet: Regular Addtl Attending Provider Instructions: Please follow up with your regular doctors at the [facility] Pending Studies at Discharge: Yes Studies:: hypercoagulation studies Stand-Alone Forms: [facility] [employer] Options, Smoking Cessation Medications and DC Order Prescriptions: New Eliquis 5 mg (74 tabs) tablets,dose pack 5 mg PO BID Qty: 74 0RF Rx Instructions: take 10mg BID for 6 days, then 5mg BID subsequently Discharge Orders: Discharge Order (Routine); Ordered 02/23/23 Ordered By: Shahrzad Amaya/Other Patient Handouts: Understanding Deep Vein Thrombosis, DVT Complications, Procedures for Deep Vein Thrombosis, DVT Post Op Prevention, Preventing Deep Vein Thrombosis Admission Data Admit Date/Time: 02/21/23 18:20 Attending Provider: Shahrzad Valentine Admit Provider: Doug Glass Primary Care Provider: PCP,NO Other Providers: Doug Glass Other Interventions: Discharge Summary Assessment (RN) Last Done: 02/23/23 10:02 Coding Level of Care Code 24863 INP/OBS DISCH >30 MIN Diagnoses Pulmonary emboli I26.99 Acute cor pulmonale presence: unspecified Chronicity: acute Pulmonary embolism type: unspecified Elevated troponin R77.8 Time Spent (min) 35
--- NOTE | 2023-02-24 16:48 | Electrocardiogram Report ---
Test Reason : Blood Pressure : / mmHG Vent. Rate : 083 BPM Atrial Rate : 083 BPM P-R Int : 156 ms QRS Dur : 098 ms QT Int : 426 ms P-R-T Axes : 058 055 016 degrees QTc Int : 500 ms Normal sinus rhythm T wave abnormality, consider anterior ischemia Prolonged QT Abnormal ECG No previous ECGs available Confirmed by Jamal Hylton ([id number]) on 02/24/2023 4:47:50 PM Referred By: Provider Outside Confirmed By:Jamal Hylton
[2023-02-25 01:17] LABS: Protein S Functional(Activity) 113 % normal (70-150)
== END 2023-02-23 10:42 | disposition home or self-care (01) | DRG 176 ==
LOC: ED 16:27 → SUATTDRO 18:20 → 2S 18:20